=== PATIENT | female | born 1965 | race Caucasian/White ===

== ENCOUNTER 2020-09-24 13:19 | Emergency (ER) | payer OTHER ==
[~2020-09-24] VITALS: Ht 157.5 cm; Wt 48.4 kg
[2020-09-24 13:31] VITALS: BP 142/80
[2020-09-24] MEDS ORDERED: KETOROLAC 30 MG/1 ML ONE (14:42)
[2020-09-24] MEDS ORDERED: METHOCARBAMOL 500 MG TABLET ONE (14:42)
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
--- NOTE | 2020-09-24 14:50 | NUR ---
PT TO XRAY. MEDICATED FOR PAIN
[2020-09-24] MEDS ORDERED: KETOROLAC 30 MG/1 ML IM ONE (15:00)
[2020-09-24] MEDS ORDERED: METHOCARBAMOL 500 MG TABLET PO ONE (15:00)
--- NOTE | 2020-09-24 16:33 | NUR ---
Patient/Caregiver given discharge instructions and they have confirmed that they understand the instructions. Patient ambulatory with steady gait.
== END 2020-09-24 16:34 | disposition home or self-care (01) ==
LOC: ED 16:00
DX: S70.02XA Contusion of left hip, initial encounter (principal); S80.02XA Contusion of left knee, initial encounter; R07.89 Other chest pain; W01.0XXA Fall on same level from slipping, tripping and stumbling without subsequent striking against object, initial encounter; Y93.89 Activity, other specified; Y92.098 Other place in other non-institutional residence as the place of occurrence of the external cause; Y99.8 Other external cause status
CPT/HCPCS: 71101; 73502; 73564; 96372; 99284; J1885